=== PATIENT | female | born 1985 | race Caucasian/White ===

== ENCOUNTER 2020-11-21 00:03 | Inpatient (IN) | payer OTHER ==
--- OUTSIDE RECORDS SUMMARY | 2020-11-21 00:05 | XMS REPORT | Continuity of Care Document ---
:1985 Author Organization [facility] t Address [address] [place] [address] Care Team Providers Name Role Phone Henok Roberts Attending Clinician Doctor Unassigned, Name Attending Clinician Unavailable [facility] Attending Clinician Pob1, Care Clinic Attending Clinician Unavailable Jorge SCHAEFER N Attending Clinician Problems This patient has no known problems. Allergies, Adverse Reactions, Alerts This patient has no known allergies or adverse reactions. Medications This patient has no known medications. Procedures This patient has no known procedures. Encounters Start End Encounter Admission Attending Care Care Encounter Source Date/Time Date/Time Type Type Clinicians Facility Department ID 2020-09-30 2020-09-30 Emergency [facility] [id number] 10:16:00 11:52:00 Jomar Marinelli [id number] [place] [id number] [place] [phone] [id number] 2020-09-30 2020-09-30 Orders Doctor CARBALLO [id number] 00:00:00 00:00:00 Only UnassignedDIYA [id number] [place] [facility] [phone] [id number] 2020-07-22 2020-07-22 Telephone [facility] [id number] 00:00:00 00:00:[facility] [id number] [place] [id number] [place] [phone] [address] 2020-07-21 2020-07-21 Urgent Pob1, Acute [facility] [id number] 11:37:41 12:43:11 [facility] [id number] [place] [id number] Professio [phone] [facility] [address] 2019-12-25 2019-12-25 [facility] [id number] 15:57:26 16:43:16 Visit Martina Santos MANAGER ECONOMIC 350..[id number] [facility] [id number] MATERNAL [phone] & CHILD 107 [facility] Results This patient has no known results.
[2020-11-21] MEDS ORDERED: Ringers Lactate 1,000 ML IV PRN (00:34)
[2020-11-21] MEDS ORDERED: Ringers Lactate 1,000 ML IV SCH (01:00)
[2020-11-21 01:08] VITALS: BMI 37.2
--- NOTE | 2020-11-21 01:20 | P.OBGYNHP ---
Certification for Inpatient With expected LOS: >2 Midnights Patient will require the following post-hospital care: None Practitioner: I am a practitioner with admitting privileges, knowledge of patient current condition, hospital course, and medical plan of care. Services: Services provided to patient in accordance with Admission requirements found in Title 42 Section 412.3 of the Code of Federal Regulations Patient History Date of Service: 11/21/20 Primary Care Provider: raoul Reason for admission: SROM at 2320 11/20 and CTX every 3-5 minutes History of Present Illness: 34 y/o G 2 P 1001 at 37 weeks 0 days ( CHE 12/12/20 ), patient of Dr. Dahl , who presents complaining of SROM at 2320 last night clear fluid , followed by ctx every 3-5 min. She reports good movement , ctx are in creasing in frequency , no vaginal bleeding . No cough or fever or resp difficulties/ Current complicated by a COVID 19 infection which she apparently contracted at work along with other co workers. Dodie hapoened in Jul , she tested ppositive at that time and she was laater tested negative a few weeks later, the infecction did not require hospitalization and she has fully recovered. Her record was reviewed and there were no other significant findings. She has had normal BP readings, Negative GBS culture. Her obstetrical history is significant for one previous term vaginal delivery in 2012. Allergies No Known Allergies Allergy (Verified 11/21/20 01:14) Home Medications: Pnv Cmb#95/Ferrous Fumarate/FA [ Tablet] 1 each PO DAILY 11/21/20 - Past Medical/Surgical History Diabetic: No Past Medical History: Reviewed- Non-Contributory ( x1, Allergies:neg, Illnesses: none, Surgeries; none) - Family History Mother -: Heart disease - Social History Smoking therapy provided: No Alcohol use: No CD- Drugs: No Review of Systems 10-point ROS is otherwise unremarkable General: Unremarkable Respiratory: Unremarkable Cardiovascular: Unremarkable Gastrointestinal: Unremarkable Genitourinary: Unremarkable Neurological: Unremarkable Physical Examination - Vital Signs Temperature: 97.6 C Blood Pressure: 120/84 Pulse: 94 Respirations: 14 - General General: Alert, Oriented x3, Cooperative, Mild distress Neck: Supple, No Thyromegaly Respiratory: Clear to auscultation bilaterally, Normal air movement Cardiovascular: No edema, Normal pulses, Regular rate/rhythm, Normal S1 S2, Normal S3 S4, No murmurs, No gallops, No rubs Gastrointestinal: Normal bowel sounds, Soft and benign, No tenderness, No massess, No rebound Neurological: Normal speech - Female Pelvic External genitalia: Normal Cervix: Dilation (1-2 cm ), Effacement (25%), station (-3), Bleeding (none) Uterus: Gravid (FH consistent with given gestational age ) - Obstetrics heart rate tracing: Category 1 Contractions: Frequency (every 3-5 minutes, mild) Amniotic membrane: SROM (clear fluid pooling ) Assessment and Plan - Problems (Diagnosis) (1) 37 weeks gestation of Current Visit: Yes Status: Acute Plan: See A&P (2) membranes, rupture Current Visit: Yes Status: Acute Plan: See A&P - Plan Assessment: 1. 37 week 2. Prelabor rupture of membranes, not in active labor 3. GBS negative 4. Long interval between first and current Plan : 1. Admit, anticipate 2. Repeat COVID testing 3. Desires epidural anesthesia after results of admit lab 4. Will likely need Pitocin augmentation - Advance Directives Does patient have a Living Will: No Does patient have a Durable POA for Healthcare: No
[2020-11-21 01:27] LABS: Absolute Lymphocytes (CBC) 2.3 K/uL (0.7-4.9); Basophils % 0.5 % (0-1.3); Hematocrit 37.3 % (36.0-45.0); Lymphocytes % 25.4 % (15.3-44.8); Urine Appearance CLEAR; Urine Bilirubin NEGATIVE (NEG); Urine Blood NEGATIVE (NEG); Urine Color YELLOW; Urine Glucose NEGATIVE (NEG); Urine Protein NEGATIVE (NEG); Urine Urobilinogen 0.2 mg/dL (0.2-1.0); Urine pH 6.5 (5.0-7.0)
[2020-11-21 01:33] LABS: Urine Microscopic Reflex NO UMIC
[2020-11-21] MEDS ORDERED: 0.2% ROPIVACAINE (200 MG/100 ML) BAG EP ONE (02:02)
[2020-11-21] MEDS ORDERED: FENTANYL CITR 100 MCG/2 ML IV ONE (02:03)
[2020-11-21] MEDS ORDERED: ROPIVACAINE HCL 0.2% 20ML AMP SQ ONE (02:05)
[2020-11-21] MEDS ORDERED: OXYTOCIN/LR 20 UNIT/1,000 ML BAG IV ONE (08:49)
[2020-11-21] MEDS ORDERED: OXYTOCIN/LR 20 UNIT/1,000 ML BAG IV SCH (09:00)
--- NOTE | 2020-11-21 09:28 | P.PN ---
Subjective Date of Service: 11/21/20 Primary Care Provider: anthony Chief Complaint: received epidural doesnt feel ctx Physical Examination - Vital Signs Temperature: 97.6 C Blood Pressure: 120/84 Pulse: 94 Respirations: 14 - Physical Exam General: In no apparent distress Other Physical/Emotional Findings: Cervix: 2-3/70/-2 - Studies Laboratory Data (last 24 hrs) 11/21/20 00:15: WBC 9.1, Hgb 12.5, Hct 37.3, Plt Count 245 Imagings Data: NST reactive Category 1 Assessment And Plan - Plan Assessment: 1. 37 week 2. Hypotonic labor with no cervical change 3. status reassuring 4. Comfortable with epidural kishore: Started on Pitocin augmentation
[2020-11-21] MEDS ORDERED: METHYLERGONOVINE 0.2MG/ML AMP IM ONE (11:57)
[2020-11-21] MEDS ORDERED: LIDOCAINE 1% MPF 30 ML VIAL ONE (11:57)
[2020-11-21] MEDS ORDERED: CARBOPROST TROME 250 MCG/ML IM ONE (11:57)
[2020-11-21] MEDS ORDERED: BUTORPHANOL 1 MG/ML INJ IV ONE (12:05)
[2020-11-21] MEDS ORDERED: PROMETHAZINE INJ 25 MG/ML AMP IV ONE (12:05)
--- NOTE | 2020-11-21 13:42 | P.PN ---
Date of Service: 11/21/20 () Preop Diagnosis: 37 week IUP, Prelabor ROM Postop Diagnosis: same Procedure: Findings: Viable male 8/9, weight 6#1 oz Anesthesia: Epidural Labor: Augmented with Pitocin Membranes; SROM at 2320 on 11/20/20 EBL: 300cc Position: OA Lacerations: None Placenta: Spontaneous and intact Mother and baby in good condition Jace Chang MD
[2020-11-21] MEDS ORDERED: DOCUSATE NA/SENNA CONC 1 TAB PO PRN (13:46)
[2020-11-21] MEDS ORDERED: ACETAMINOPHEN 500 MG TAB PO PRN (13:46)
[2020-11-21] MEDS ORDERED: ZOLPIDEM TARTRATE 5 MG TABLET PO PRN (13:46)
[2020-11-21] MEDS ORDERED: ONDANSETRON 4 MG/2 ML VIAL IV PRN (13:46)
[2020-11-21 22:42] LABS: RPR (Rapid Plasma Reagin) NON-REACT (NON-REACT)
[2020-11-22] MEDS: IBUPROFEN 200 MG TAB PO PRN ×2 (01:10→09:57)
[2020-11-22] MEDS: Oxycodone HCl/Acetaminophen 1 TAB TAB PO PRN ×2 (05:30→11:35)
[2020-11-22 06:59] LABS: Absolute Lymphocytes (CBC) 2.3 K/uL (0.7-4.9); Basophils % 0.5 % (0-1.3); Hematocrit 35.2 % (36.0-45.0); Lymphocytes % 22.2 % (15.3-44.8); MPV 8.8 fL (7.6-11.3); RBC Red Blood Cell Count 3.83 M/uL (3.86-4.86)
[2020-11-22 11:38] VITALS: TEMP 96.3
--- NOTE | 2020-11-22 12:08 | P.PN ---
Subjective Date of Service: 11/22/20 Primary Care Provider: anthony Chief Complaint: day 1 Subjective: Tolerating diet, Ambulating Physical Examination - Vital Signs Temperature: 35.7 C Blood Pressure: 150/84 Pulse: 70 Respirations: 17 Pulse Ox (%): 98 - Physical Exam General: Alert, In no apparent distress, Oriented x3 - Studies Laboratory Data (last 24 hrs) 11/22/20 06:08: WBC 10.4 D, Hgb 12.1, Hct 35.2 L, Plt Count 228 Assessment And Plan - Current Problems (Diagnosis) (1) care and examination Current Visit: Yes Status: Acute - Plan Assessment: 1. day #1 doing well Meets criteria for discharge, Bleeding minimal , normal CBC Systolic BP slighlty elevated (140-150) asymptomatic, normal diastolic Plan: DC home later today Pelvic rest Continue vits F/u BP in office within the next week Motrin 800mg q8hr prn cramps Plans on IUD for control Discharge Plan: Home Physician Review: Patient Assessed, Agree with Above Assessment and Plan
[2020-11-22] MEDS ORDERED: Tdap (Diph,Pertuss(Acell),Tet Vac) 0.5 ML SYR IMVAC ONE (15:00)
[2020-11-22 15:01] VITALS: BP 136/85
--- NOTE | 2020-11-23 11:55 | P.DS ---
Admission Date: 11/21/20 Discharge Date: 11/23/20 Primary Care Provider: anthony Disposition: ROUTINE DISCHARGE Discharge Condition: GOOD Reason for Admission: day 1 - Problems (1) care and examination Status: Acute Brief History of Present Illness: 34 y/o G 2 P 1001 at 37 weeks 0 days ( CHE 12/12/20 ), patient of Dr. Dahl , who presents complaining of SROM at 2320 last night clear fluid , followed by ctx every 3-5 min. She reports good movement , ctx are in creasing in frequency , no vaginal bleeding . No cough or fever or resp difficulties/ Current complicated by a COVID 19 infection which she apparently contracted at work along with other co workers. Dodie hapoened in Jul , she tested ppositive at that time and she was laater tested negative a few weeks later, the infecction did not require hospitalization and she has fully recovered. Her record was reviewed and there were no other significant findings. She has had normal BP readings, Negative GBS culture. Her obstetrical history is significant for one previous term vaginal delivery in 2012. Vital Signs/Physical Exam: Temp Pulse Resp BP Pulse Ox 35.7 C L 72 17 136/85 98 11/22/20 12:09 11/22/20 15:01 11/22/20 12:09 11/22/20 15:01 11/22/20 12:09 Other Physical/Emotional Findings: Cervix: 2-3/70/-2 Laboratory Data at Discharge: WBC 10.4 K/uL (4.3-10.9) D 11/22/20 06:08 Hgb 12.1 g/dL (12.0-15.0) 11/22/20 06:08 Hct 35.2 % (36.0-45.0) L 11/22/20 06:08 Plt Count 228 K/uL (152-406) 11/22/20 06:08 Home Medications: Pnv Cmb#95/Ferrous Fumarate/FA [ Tablet] 1 each PO DAILY 11/21/20 Followup: Santos Dahl MD [ACTIVE - CAN ADMIT] - (6 weeks)
[2020-11-24 20:12] LABS: HBsAG Nonreactive (Nonreactive)
--- NOTE | 2021-01-16 14:43 | OP ---
Date of Procedure: 11/21/2020 Surgeon: TOM TANG Preoperative Diagnoses: A 37-week intrauterine , prelabor ruptured membranes. Postoperative Diagnoses: A 37-week intrauterine delivered, prelabor ruptured membranes. Procedure: Spontaneous vaginal delivery. Findings: Viable male, 8/9, weight 6 pounds, 1 ounces. Anesthesia epidural. Labor augmented with Pitocin. Membranes, spontaneous ruptured membranes at 2320 hours on 11/20/2020. Estimated bloo d loss 300 cc. Complications, none. Lacerations, none. Placenta spontaneous and intact. Narrative: Under informed consent the patient was in the delivery room and progressed on labor. She was delivered spontaneously, viable male, 8/9 without complication. Nasopharyngeal suction. Cords clamped and cut. Infant was delivered out to pediatric team. Cord blood obtained. Placenta _ uterus and released spontaneously. The examination of the perineum revealed intact perineu m with no lacerations. There was no hemorrhage. Mother and baby were in good condition a t the completion of the procedure. Oxytocin was began for uterine contraction. CHRIS/MARY Voice ID: [id number] Report ID: [id number]
== END 2020-11-22 17:00 | disposition home or self-care (01) | DRG 807 ==
LOC: L&D 00:03 → 2ND-WC 00:31
PROVIDERS: ADMIT Specialist; ATTEND Specialist
PROC: 10E0XZZ Delivery of Products of Conception, External Approach (ICD-10-PCS; principal; 2020-11-21)
DX: O80 Encounter for full-term uncomplicated delivery (principal); Z37.0 Single live birth; Z3A.37 37 weeks gestation of pregnancy; Z86.16 Personal history of COVID-19; Z20.822 Contact with and (suspected) exposure to COVID-19; Z23 Encounter for immunization
CPT/HCPCS: 36415; 81003; 85025; 86592; 86850; 86900; 86901; 87340; 90471; 90715; J0595; J2210; J2550; J2590; J2795; J3010; J7120; U0003